=== PATIENT | male | born 1935 | race Caucasian/White ===

== ENCOUNTER 2017-05-31 05:54 | Day surgery (SDC) | payer OTHER ==
[2017-05-31] MEDS ORDERED: LIDOCAINE 1% (MPF) 30 ML INJ (06:49)
[2017-05-31] MEDS ORDERED: GELATIN SIZE 100 SPONGE (06:49)
[2017-05-31] MEDS ORDERED: HEPARIN 1000 UNITS/ML 10 ML INJ ×2 (06:50→08:12)
[2017-05-31] MEDS ORDERED: THROMBIN 5000 UNIT VIAL (06:50)
[2017-05-31 07:14] LABS: POTASSIUM 4.8 mmol/L (3.5-5.1)
[2017-05-31] MEDS ORDERED: PROPOFOL 20 ML (07:27)
[2017-05-31] MEDS ORDERED: MIDAZOLAM 1 MG/ML 2 ML INJ ×2 (07:28→07:53)
[2017-05-31] MEDS ORDERED: FENTAnyl 50 MCG/ML VIAL (07:28)
[2017-05-31] MEDS ORDERED: ROPIVACAINE 0.5 % 30 ML VIAL (07:28)
[2017-05-31] MEDS ORDERED: ONDANSETRON 4 MG INJ (07:48)
[2017-05-31] MEDS ORDERED: CEFAZOLIN 1 GM INJ (07:48)
[2017-05-31] MEDS ORDERED: METOCLOPRAMIDE 10 MG INJ (07:49)
[2017-05-31] MEDS ORDERED: DEXAMETHASONE 4 MG/ML 1 ML INJ (07:49)
[2017-05-31] MEDS ORDERED: PHENYLephrine (100 MCG/ML) 5ML SYG (08:01)
[2017-05-31] MEDS: LIDOCAINE 1% (MPF) 30 ML INJ INJ (08:06)
[2017-05-31] MEDS: HEPARIN 10,000 UNITS/ML 1 ML INJ SC (08:07)
[2017-05-31] MEDS: SODIUM CHLORIDE 0.9% 1L BAG IV (08:07)
[2017-05-31] MEDS: GELATIN SIZE 100 SPONGE TOP (08:08)
[2017-05-31] MEDS: THROMBIN 5000 UNIT VIAL TOP (08:08)
[2017-05-31] MEDS ORDERED: LABETALOL HCL 20MG INJ IV (08:30)
[2017-05-31] MEDS ORDERED: FENTAnyl 50 MCG/ML VIAL IV ×2 (08:30)
[2017-05-31] MEDS ORDERED: MEPERIDINE 25 MG INJ IV (08:30)
[2017-05-31] MEDS ORDERED: HYDROmorphONE (0.2 MG/ML) 10ML SYG IV ×3 (08:30)
[2017-05-31] MEDS ORDERED: METOCLOPRAMIDE 10 MG INJ IV (08:30)
[2017-05-31] MEDS ORDERED: hydrALAzine 20 MG INJ IV (08:30)
[2017-05-31] MEDS ORDERED: DIPHENHYDRAMINE 50 MG INJ IV (08:30)
[2017-05-31] MEDS ORDERED: EPHEDrine SULFATE 50 MG/5 ML SYG IV (08:30)
[2017-05-31] MEDS: ONDANSETRON 4 MG INJ IV (09:52)
[2017-05-31] MEDS: FENTAnyl 50 MCG/ML VIAL IV (09:52)
== END 2017-05-31 11:50 | disposition home or self-care (01) ==
LOC: SDS 05:54
DX: I12.9 Hypertensive chronic kidney disease with stage 1 through stage 4 chronic kidney disease, or unspecified chronic kidney disease (principal); N18.3 Chronic kidney disease, stage 3 (moderate); E11.9 Type 2 diabetes mellitus without complications
CPT/HCPCS: 36821; 82962; 84132

== ENCOUNTER 2018-05-29 15:20 | Inpatient (IN) | payer OTHER ==
[2018-05-29 16:10] LABS: ADD MAN DIFF? NO
[2018-05-29 16:14] LABS: WHITE BLOOD COUNT 4.1 10^3/ul (4.8-10.8)
[2018-05-29 16:14] LABS: ABNORMAL IP MESSAGE 1; BASOPHILS % 0.7 % (0.0-2.0); EOSINOPHILS # 0.2 10^3/ul (0.0-0.5); EOSINOPHILS % 4.1 % (0.0-7.0); HEMATOCRIT 25.9 % (42.0-52.0); HEMOGLOBIN 8.3 g/dl (14.0-18.0); LYMPHOCYTES # 0.4 10^3/ul (0.8-2.9); LYMPHOCYTES % 9.2 % (15.0-51.0); MEAN CORPUSCULAR HEMOGLOBIN 31.7 pg (29.0-33.0); MEAN CORPUSCULAR VOLUME 98.9 fl (82.0-101.0); MEAN PLATELET VOLUME 11.4 fl (7.4-10.4); MONOCYTE # 0.5 10^3/ul (0.3-0.9); MONOCYTES % 11.4 % (0.0-11.0); NEUTROPHILS % 74.1 % (39.0-77.0); PLATELET COUNT 93 10^3/UL (140-415); POSITIVE DIFF @See below; RED BLOOD COUNT 2.62 10^6/ul (4.70-6.10); RED CELL DISTRIBUTION WIDTH 18.8 % (11.5-14.5)
[2018-05-29 16:34] LABS: INR 1.45; PARTIAL THROMBOPLASTIN TIME 37.4 Sec (23.0-35.0); PROTIME 17.7 Sec (11.9-14.9); PT RATIO 1.4
[2018-05-29 16:35] LABS: ALANINE AMINOTRANSFERASE 10 IU/L (13-69); ALBUMIN 3.9 g/dl (3.3-4.9); ALKALINE PHOSPHATASE 190 IU/L (42-121); ANION GAP 21 (5-13); ASPARTATE AMINO TRANSFERASE 23 IU/L (15-46); BILIRUBIN,INDIRECT 0.3 mg/dl (0-1.1); BILIRUBIN,TOTAL 0.3 mg/dl (0.2-1.3); BLOOD UREA NITROGEN 36 mg/dl (7-20); CALCIUM 10.5 mg/dl (8.4-10.2); CARBON DIOXIDE 25 mmol/L (21-31); CHLORIDE 92 mmol/L (97-110); CREATININE 6.02 mg/dl (0.61-1.24); GLUCOSE 98 mg/dl (70-220); LACTATE DEHYDROGENASE 350 IU/L (313-618); LIPASE 212 U/L (23-300); POTASSIUM 4.1 mmol/L (3.5-5.1); SODIUM 138 mmol/L (135-144)
[2018-05-29 16:44] LABS: ALBUMIN/GLOBULIN RATIO 0.45; TOTAL PROTEIN 12.5 g/dl (6.1-8.1)
[2018-05-29] MEDS ORDERED: INSULIN GLARGINE [LANTus] (100 UNITS/ML) SYG SC (20:00)
[2018-05-29] MEDS ORDERED: NACL 0.9% 3 ML SYG IV (20:00)
[2018-05-29] MEDS ORDERED: GLUCOSE GEL 15 GRAM TUBE BUCCAL (20:30)
[2018-05-29] MEDS ORDERED: GLUCAGON 1 MG INJ IM (20:30)
[2018-05-29] MEDS ORDERED: GLUCOSE GEL 15 GRAM TUBE PO ×2 (20:30)
[2018-05-29] MEDS ORDERED: DEXTROSE 50% 50 ML SYRINGE IV ×2 (20:30)
[2018-05-29 20:49] LABS: IMMUNOGLOBULIN A 45 mg/dl (70-400)
[2018-05-29 20:50] LABS: IMMUNOGLOBULIN M < 25 mg/dl (40-230)
[2018-05-29] MEDS ORDERED: INSULIN ASPART [NOVOLOG] 3 ML PEN SC (21:00)
[2018-05-29] MEDS: RANITIDINE 150 MG TAB PO (21:00)
[2018-05-29] MEDS ORDERED: LISINOPRIL 20 MG TAB PO (21:00)
[2018-05-29 21:26] LABS: IMMUNOGLOBULIN G 7083 mg/dl (700-1600)
[2018-05-29] MEDS: HYDROmorphONE 0.5 MG/0.5 ML SYG IV (21:36)
[2018-05-30] MEDS ORDERED: ACCU-CHEK XX (02:00)
[2018-05-30 05:28] LABS: ADD MAN DIFF? NO
[2018-05-30 05:38] LABS: ABNORMAL IP MESSAGE 1; BASOPHILS % 0.8 % (0.0-2.0); EOSINOPHILS # 0.1 10^3/ul (0.0-0.5); EOSINOPHILS % 2.9 % (0.0-7.0); HEMATOCRIT 26.6 % (42.0-52.0); HEMOGLOBIN 8.6 g/dl (14.0-18.0); LYMPHOCYTES # 0.5 10^3/ul (0.8-2.9); LYMPHOCYTES % 10.1 % (15.0-51.0); MEAN CORPUSCULAR HEMOGLOBIN 32.2 pg (29.0-33.0); MEAN CORPUSCULAR HGB CONC 32.3 g/dl (32.0-37.0); MEAN CORPUSCULAR VOLUME 99.6 fl (82.0-101.0); MEAN PLATELET VOLUME 12.8 fl (7.4-10.4); MONOCYTE # 0.5 10^3/ul (0.3-0.9); MONOCYTES % 10.5 % (0.0-11.0); NEUTROPHIL # 3.6 10^3/ul (1.6-7.5); NEUTROPHILS % 75.3 % (39.0-77.0); PLATELET COUNT 92 10^3/UL (140-415); POSITIVE DIFF @See below; RED BLOOD COUNT 2.67 10^6/ul (4.70-6.10); RED CELL DISTRIBUTION WIDTH 19.2 % (11.5-14.5)
[2018-05-30 05:38] LABS: WHITE BLOOD COUNT 4.8 10^3/ul (4.8-10.8)
[2018-05-30 05:53] LABS: HEMOGLOBIN A1C 5.6 % (0-5.9)
[2018-05-30 06:12] LABS: ALANINE AMINOTRANSFERASE 11 IU/L (13-69); ALBUMIN 3.7 g/dl (3.3-4.9); ALKALINE PHOSPHATASE 174 IU/L (42-121); ANION GAP 22 (5-13); ASPARTATE AMINO TRANSFERASE 25 IU/L (15-46); BILIRUBIN,INDIRECT 0.3 mg/dl (0-1.1); BILIRUBIN,TOTAL 0.3 mg/dl (0.2-1.3); BLOOD UREA NITROGEN 46 mg/dl (7-20); CALCIUM 10.8 mg/dl (8.4-10.2); CARBON DIOXIDE 25 mmol/L (21-31); CHLORIDE 93 mmol/L (97-110); CREATININE 6.85 mg/dl (0.61-1.24); GLUCOSE 98 mg/dl (70-220); POTASSIUM 4.4 mmol/L (3.5-5.1); SODIUM 140 mmol/L (135-144)
[2018-05-30 06:50] LABS: ALBUMIN/GLOBULIN RATIO 0.44; TOTAL PROTEIN 12.1 g/dl (6.1-8.1)
[2018-05-30] MEDS ORDERED: ATROPINE 1 MG/10 ML SYRINGE (07:00)
[2018-05-30] MEDS: CLOPIDOGREL 75 MG TAB PO (09:00)
[2018-05-30] MEDS ORDERED: NIFEdipine (XL) 30 MG TAB PO (09:00)
[2018-05-30] MEDS: APIXABAN 5 MG TABLET PO (09:00)
[2018-05-30] MEDS: HYDROCODONE/APAP (5/325) TAB PO ×2 (09:57→22:20)
[2018-05-30] MEDS ORDERED: NALOXONE (0.4 MG/ML) INJ (14:08)
[2018-05-30] MEDS: NALOXONE (0.4 MG/ML) INJ IV (14:13)
[2018-05-30] MEDS ORDERED: BISACODYL (EC) 5 MG TAB PO (18:30)
[2018-05-30] MEDS: ATORVASTATIN 40 MG TAB PO (20:34)
[2018-05-30] MEDS: RANITIDINE 150 MG TAB PO (20:35)
[2018-05-31] MEDS: ONDANSETRON 4 MG INJ IV (00:10)
[2018-05-31 09:36] LABS: PROTEIN, TOTAL 11.6 g/dL (6.1-8.1)
[2018-05-31] MEDS: CLOPIDOGREL 75 MG TAB PO (09:46)
[2018-05-31] MEDS: APIXABAN 5 MG TABLET PO (09:48)
[2018-05-31] MEDS: NA PHOSPHATE/BIPHOS 133 ML ENEMA PR (12:00)
[2018-05-31 13:13] LABS: HAAIG REFLEX REFLEX FILED
[2018-05-31 14:15] LABS: HEPATITIS B SURFACE ANTIGEN NEGATIVE (NEGATIVE)
[2018-05-31 14:28] LABS: IMMUNOGLOBULIN E 5 kU/L (<OR=114)
[2018-05-31 14:33] LABS: HEPATITIS B CORE ANTIBODY NEGATIVE (NEGATIVE); HEPATITIS C VIRAL ANTIBODY NEGATIVE (NEGATIVE)
[2018-05-31] MEDS: PAMIDRONATE 30 MG in SOD CHLORIDE 0.9% 500 ML IV (16:33)
[2018-05-31] MEDS: BALSAM PERU/CASTOR OIL 60 GM TUBE TOP ×2 (16:33→20:46)
[2018-05-31] MEDS: HYDROCODONE/APAP (5/325) TAB PO ×2 (16:41→22:01)
[2018-05-31 16:46] LABS: ABNORMAL PROTEIN BAND 1 6.3 g/dL (NONE DETECTED); ALBUMIN 2.9 g/dL (3.8-4.8); ALPHA-1-GLOBULINS 0.5 g/dL (0.2-0.3); ALPHA-2-GLOBULINS 0.6 g/dL (0.5-0.9); BETA GLOBULINS 0.4 g/dL (0.4-0.6); GAMMA GLOBULINS 0.2 g/dL (0.8-1.7)
[2018-05-31] MEDS: ATORVASTATIN 40 MG TAB PO (20:45)
[2018-05-31] MEDS: RANITIDINE 150 MG TAB PO (20:45)
[2018-06-01] MEDS ORDERED: NORepinephrine 8MG/250 ML (PMX 250 ML (02:13)
[2018-06-01] MEDS: NORepinephrine 8MG/250 ML (PMX 250 ML IV ×2 (02:16→09:30)
[2018-06-01 03:01] LABS: AADO2 Arterial 207.3 mmHg (7.0-24.0); Allen Test ACCEPTAB; Arterial Base Excess -2.7 mmol/L (-3.0-3); Arterial Blood Gas Oxygen Sat 96.8 mmHG (95.0-100.0); Arterial COHb 0.8 % (0.0-3.0); Arterial Fraction of Oxyhgb 95.8 % (93.0-99.0); Arterial HCO3 22.5 mmol/L (22.0-26.0); Arterial MetHb 0.2 % (0.0-1.5); MODE VENT - AC; Site Right Radial
[2018-06-01] MEDS: NALOXONE (0.4 MG/ML) INJ IV ×2 (03:01→04:40)
[2018-06-01 03:15] LABS: ADD MAN DIFF? NO
[2018-06-01] MEDS: SOD CHLORIDE 0.9% 500 ML IV (03:17)
[2018-06-01 03:22] LABS: WHITE BLOOD COUNT 4.5 10^3/ul (4.8-10.8)
[2018-06-01 03:22] LABS: ABNORMAL IP MESSAGE 1; BASOPHILS % 0.4 % (0.0-2.0); EOSINOPHILS # 0.1 10^3/ul (0.0-0.5); EOSINOPHILS % 1.6 % (0.0-7.0); HEMATOCRIT 25.1 % (42.0-52.0); HEMOGLOBIN 7.8 g/dl (14.0-18.0); LYMPHOCYTES # 0.3 10^3/ul (0.8-2.9); LYMPHOCYTES % 7.2 % (15.0-51.0); MEAN CORPUSCULAR HEMOGLOBIN 31.6 pg (29.0-33.0); MEAN CORPUSCULAR HGB CONC 31.1 g/dl (32.0-37.0); MEAN CORPUSCULAR VOLUME 101.6 fl (82.0-101.0); MEAN PLATELET VOLUME 12.4 fl (7.4-10.4); MONOCYTE # 0.3 10^3/ul (0.3-0.9); MONOCYTES % 5.6 % (0.0-11.0); NEUTROPHIL # 3.7 10^3/ul (1.6-7.5); NEUTROPHILS % 83.6 % (39.0-77.0); PLATELET COUNT 77 10^3/UL (140-415); POSITIVE DIFF @See below; RED BLOOD COUNT 2.47 10^6/ul (4.70-6.10); RED CELL DISTRIBUTION WIDTH 19.3 % (11.5-14.5)
[2018-06-01 03:44] LABS: ALANINE AMINOTRANSFERASE 27 IU/L (13-69); ALBUMIN 3.3 g/dl (3.3-4.9); ALBUMIN/GLOBULIN RATIO 0.44; ALKALINE PHOSPHATASE 171 IU/L (42-121); ANION GAP 17 (5-13); ASPARTATE AMINO TRANSFERASE 48 IU/L (15-46); BILIRUBIN,INDIRECT 0.3 mg/dl (0-1.1); BILIRUBIN,TOTAL 0.3 mg/dl (0.2-1.3); BLOOD UREA NITROGEN 34 mg/dl (7-20); CALCIUM 11.1 mg/dl (8.4-10.2); CARBON DIOXIDE 23 mmol/L (21-31); CHLORIDE 103 mmol/L (97-110); CREATININE 5.67 mg/dl (0.61-1.24); GLUCOSE 122 mg/dl (70-220); POTASSIUM 4.7 mmol/L (3.5-5.1); SODIUM 143 mmol/L (135-144); TOTAL PROTEIN 10.7 g/dl (6.1-8.1)
[2018-06-01 03:48] LABS: CREATINE KINASE 103 IU/L (23-200)
[2018-06-01 03:55] LABS: CK INDEX 1.7; CK-MB 1.76 ng/ml (0.0-2.4)
[2018-06-01 03:58] LABS: LACTIC ACID 3.4 mmol/L (0.5-2.0)
[2018-06-01] MEDS ORDERED: NA BICARBONATE 8.4% 50 ML SYG (04:00)
[2018-06-01] MEDS ORDERED: SUCCINYLCHOLINE CHLORIDE 100 MG/5 ML SYG IV (04:00)
[2018-06-01] MEDS ORDERED: DEXTROSE 50% 50 ML SYRINGE (04:00)
[2018-06-01] MEDS ORDERED: ETOMIDATE 20 MG INJ (04:00)
[2018-06-01] MEDS ORDERED: CA CHLORIDE 10% 10 ML SYRINGE (04:00)
[2018-06-01] MEDS ORDERED: EPINEPHrine 0.1 MG/ML SYG (04:00)
[2018-06-01] MEDS: PROPOFOL 40 ML (04:04)
[2018-06-01] MEDS: MIDAZOLAM 1 MG/ML 2 ML INJ (04:05)
[2018-06-01] MEDS: FENTAnyl 50 MCG/ML VIAL (04:05)
[2018-06-01] MEDS: LIDOCAINE 1% (MDV) 20 ML INJ (04:06)
[2018-06-01] MEDS: LIDOCAINE 2% (SDV) 5 ML INJ (04:06)
[2018-06-01] MEDS: GLYCOPYRROLATE 0.4 MG INJ (04:06)
[2018-06-01] MEDS: EPHEDrine 25 MG/5 ML SYG (04:06)
[2018-06-01] MEDS: SOD CHLORIDE 0.9% 1,000 ML IV (04:40)
[2018-06-01] MEDS: INSULIN ASPART [NOVOLOG] 3 ML PEN SC (04:58)
[2018-06-01 05:18] LABS: ADD MAN DIFF? NO
[2018-06-01 05:20] LABS: WHITE BLOOD COUNT 5.6 10^3/ul (4.8-10.8)
[2018-06-01 05:20] LABS: ABNORMAL IP MESSAGE 1; BASOPHILS % 0.4 % (0.0-2.0); EOSINOPHILS % 0.5 % (0.0-7.0); HEMATOCRIT 25.9 % (42.0-52.0); HEMOGLOBIN 8.1 g/dl (14.0-18.0); LYMPHOCYTES # 0.5 10^3/ul (0.8-2.9); LYMPHOCYTES % 9.6 % (15.0-51.0); MEAN CORPUSCULAR HEMOGLOBIN 31.5 pg (29.0-33.0); MEAN CORPUSCULAR HGB CONC 31.3 g/dl (32.0-37.0); MEAN CORPUSCULAR VOLUME 100.8 fl (82.0-101.0); MEAN PLATELET VOLUME 12.5 fl (7.4-10.4); MONOCYTE # 0.5 10^3/ul (0.3-0.9); MONOCYTES % 8.9 % (0.0-11.0); NEUTROPHIL # 4.5 10^3/ul (1.6-7.5); NEUTROPHILS % 79.9 % (39.0-77.0); NUCLEATED RED BLOOD CELLS% 0.4 /100WBC (0.0-0.0); PLATELET COUNT 87 10^3/UL (140-415); POSITIVE DIFF @See below; RED BLOOD COUNT 2.57 10^6/ul (4.70-6.10); RED CELL DISTRIBUTION WIDTH 19.4 % (11.5-14.5)
[2018-06-01] MEDS ORDERED: PROPOFOL 100 ML (06:22)
[2018-06-01 06:29] LABS: ANION GAP 19 (5-13); BLOOD UREA NITROGEN 36 mg/dl (7-20); CARBON DIOXIDE 23 mmol/L (21-31); CHLORIDE 99 mmol/L (97-110); CREATININE 5.73 mg/dl (0.61-1.24); GLUCOSE 142 mg/dl (70-220); PHOSPHORUS 7.6 mg/dl (2.5-4.9); SODIUM 141 mmol/L (135-144)
[2018-06-01] MEDS ORDERED: ACETAMINOPHEN 650 MG SUPP PR (07:00)
[2018-06-01] MEDS: ACCU-CHEK XX ×6 (07:00→20:00)
[2018-06-01] MEDS ORDERED: MEPERIDINE 25 MG INJ IV ×3 (07:00→07:30)
[2018-06-01] MEDS ORDERED: ACETAMINOPHEN 650MG/20.3ML CUP PO (07:00)
[2018-06-01] MEDS ORDERED: DEXTROSE 50% 50 ML SYRINGE IV ×4 (07:00→09:30)
[2018-06-01] MEDS ORDERED: BUSPIRONE 5 MG TAB GTB (07:30)
[2018-06-01] MEDS: VECURONIUM 10 MG VIAL IV (07:30)
[2018-06-01] MEDS: PROPOFOL 100 ML IV ×3 (07:53→18:02)
[2018-06-01 08:03] LABS: AADO2 Arterial 202.7 mmHg (7.0-24.0); Allen Test ACCEPTAB; Arterial Base Excess -0.3 mmol/L (-3.0-3); Arterial Blood Gas Oxygen Sat 98.2 mmHG (95.0-100.0); Arterial COHb 0.6 % (0.0-3.0); Arterial Fraction of Oxyhgb 97.5 % (93.0-99.0); Arterial HCO3 23.7 mmol/L (22.0-26.0); Arterial MetHb 0.1 % (0.0-1.5); Arterial pCO2 34.9 mmhg (35-45); MODE VENT - AC; Site Right Radial; Temperature 36.2 C
[2018-06-01 08:03] LABS: LACTIC ACID 1.4 mmol/L (0.5-2.0)
[2018-06-01 08:04] LABS: AMYLASE 57 U/L (11-123); LIPASE 133 U/L (23-300); MAGNESIUM 2.1 mg/dl (1.7-2.5)
[2018-06-01 08:04] LABS: PHOSPHORUS 7.8 mg/dl (2.5-4.9)
[2018-06-01 08:07] LABS: CREATINE KINASE 79 IU/L (23-200)
[2018-06-01 08:16] LABS: CK INDEX 3.5; INR 1.73; PROTIME 20.3 Sec (11.9-14.9); PT RATIO 1.6
[2018-06-01 08:17] LABS: PARTIAL THROMBOPLASTIN TIME 36.3 Sec (23.0-35.0)
[2018-06-01 08:19] LABS: CK-MB 2.77 ng/ml (0.0-2.4)
[2018-06-01 08:21] LABS: TROPONIN-I 0.222 ng/ml (0.000-0.120)
[2018-06-01 08:35] LABS: D-DIMER 5884.17 ng/ml (<460)
[2018-06-01] MEDS: BALSAM PERU/CASTOR OIL 60 GM TUBE TOP ×2 (09:00→23:20)
[2018-06-01] MEDS: CLOPIDOGREL 75 MG TAB PO (09:00)
[2018-06-01] MEDS: APIXABAN 5 MG TABLET PO (09:00)
[2018-06-01] MEDS ORDERED: GLUCAGON 1 MG INJ IM (09:30)
[2018-06-01] MEDS ORDERED: GLUCOSE GEL 15 GRAM TUBE BUCCAL (09:30)
[2018-06-01] MEDS ORDERED: GLUCOSE GEL 15 GRAM TUBE PO ×2 (09:30)
[2018-06-01] MEDS ORDERED: (Nursing Note) XX (09:30)
[2018-06-01] MEDS: VECURONIUM 100 MG in DEXTROSE 5% 100 ML IV (09:55)
[2018-06-01] MEDS ORDERED: VANCOMYCIN IV PER PHARMACY XX (10:00)
[2018-06-01] MEDS: AZTREONAM 1 GM/NS (PMX) 50 ML IVPB (10:38)
[2018-06-01] MEDS ORDERED: OCULAR LUBRICANT 3.5 GM OPH OINT BOTH EYES ×2 (12:00)
[2018-06-01] MEDS: ARTIFICIAL TEARS 15 ML OPH BOTH EYES ×3 (12:04→23:21)
[2018-06-01] MEDS: HYPROMELLOSE OPHTHALMIC LUBRICANT GEL (10 GM) BOTH EYES ×3 (12:06→23:22)
[2018-06-01 12:20] LABS: ADD MAN DIFF? NO
[2018-06-01 12:23] LABS: ABNORMAL IP MESSAGE 1; BASOPHILS % 0.2 % (0.0-2.0); EOSINOPHILS % 0.2 % (0.0-7.0); HEMATOCRIT 25.6 % (42.0-52.0); HEMOGLOBIN 8.2 g/dl (14.0-18.0); LYMPHOCYTES # 0.4 10^3/ul (0.8-2.9); LYMPHOCYTES % 7.9 % (15.0-51.0); MEAN CORPUSCULAR HEMOGLOBIN 32.3 pg (29.0-33.0); MEAN CORPUSCULAR VOLUME 100.8 fl (82.0-101.0); MEAN PLATELET VOLUME 12.1 fl (7.4-10.4); MONOCYTE # 0.4 10^3/ul (0.3-0.9); MONOCYTES % 7.5 % (0.0-11.0); NEUTROPHIL # 4.1 10^3/ul (1.6-7.5); NEUTROPHILS % 83.4 % (39.0-77.0); PLATELET COUNT 70 10^3/UL (140-415); POSITIVE DIFF @See below; RED BLOOD COUNT 2.54 10^6/ul (4.70-6.10); RED CELL DISTRIBUTION WIDTH 19.2 % (11.5-14.5)
[2018-06-01 12:44] LABS: LACTIC ACID 1.2 mmol/L (0.5-2.0)
[2018-06-01 12:44] LABS: CREATINE KINASE 67 IU/L (23-200)
[2018-06-01 12:53] LABS: CK INDEX 4.9
[2018-06-01 13:04] LABS: CK-MB 3.26 ng/ml (0.0-2.4); TROPONIN-I 0.291 ng/ml (0.000-0.120)
[2018-06-01 13:10] LABS: AADO2 Arterial 182.7 mmHg (7.0-24.0); Allen Test ACCEPTAB; Arterial Base Excess -0.5 mmol/L (-3.0-3); Arterial Blood Gas Oxygen Sat 96.2 mmHG (95.0-100.0); Arterial COHb 0.7 % (0.0-3.0); Arterial Fraction of Oxyhgb 95.2 % (93.0-99.0); Arterial HCO3 24.1 mmol/L (22.0-26.0); Arterial MetHb 0.3 % (0.0-1.5); Arterial pCO2 32.6 mmhg (35-45); MODE VENT - AC; Site Right Radial; Temperature 32.6 C
[2018-06-01 13:15] LABS: AMYLASE 67 U/L (11-123)
[2018-06-01 13:15] LABS: LIPASE 122 U/L (23-300)
[2018-06-01 13:17] LABS: INR 1.79; PROTIME 20.9 Sec (11.9-14.9); PT RATIO 1.6
[2018-06-01 13:18] LABS: PARTIAL THROMBOPLASTIN TIME 36.2 Sec (23.0-35.0)
[2018-06-01 13:19] LABS: ANION GAP 22 (5-13); BLOOD UREA NITROGEN 39 mg/dl (7-20); CARBON DIOXIDE 21 mmol/L (21-31); CHLORIDE 99 mmol/L (97-110); CREATININE 6.41 mg/dl (0.61-1.24); GLUCOSE 147 mg/dl (70-220); MAGNESIUM 2.1 mg/dl (1.7-2.5); PHOSPHORUS 8.2 mg/dl (2.5-4.9); POTASSIUM 4.4 mmol/L (3.5-5.1); SODIUM 142 mmol/L (135-144)
[2018-06-01] MEDS: VANCOMYCIN HCL 1.75 GM in SOD CHLORIDE 0.9% 500 ML IVPB (14:04)
[2018-06-01 18:22] LABS: ADD MAN DIFF? NO
[2018-06-01 18:23] LABS: ABNORMAL IP MESSAGE 1; BASOPHILS % 0.2 % (0.0-2.0); EOSINOPHILS % 0.2 % (0.0-7.0); HEMATOCRIT 25.5 % (42.0-52.0); HEMOGLOBIN 8.1 g/dl (14.0-18.0); LYMPHOCYTES # 0.4 10^3/ul (0.8-2.9); LYMPHOCYTES % 8.4 % (15.0-51.0); MEAN CORPUSCULAR HGB CONC 31.8 g/dl (32.0-37.0); MEAN CORPUSCULAR VOLUME 100.8 fl (82.0-101.0); MEAN PLATELET VOLUME 12.5 fl (7.4-10.4); MONOCYTE # 0.4 10^3/ul (0.3-0.9); MONOCYTES % 7.4 % (0.0-11.0); NEUTROPHIL # 4.3 10^3/ul (1.6-7.5); NEUTROPHILS % 83.2 % (39.0-77.0); PLATELET COUNT 67 10^3/UL (140-415); POSITIVE DIFF @See below; RED BLOOD COUNT 2.53 10^6/ul (4.70-6.10); RED CELL DISTRIBUTION WIDTH 19.4 % (11.5-14.5)
[2018-06-01 18:23] LABS: WHITE BLOOD COUNT 5.1 10^3/ul (4.8-10.8)
[2018-06-01 18:43] LABS: LACTIC ACID 1.1 mmol/L (0.5-2.0)
[2018-06-01 18:44] LABS: CREATINE KINASE 39 IU/L (23-200)
[2018-06-01 18:45] LABS: Allen Test ACCEPTAB; Arterial Base Excess -2.9 mmol/L (-3.0-3); Arterial Blood Gas Oxygen Sat 97.2 mmHG (95.0-100.0); Arterial COHb 0.3 % (0.0-3.0); Arterial Fraction of Oxyhgb 96.6 % (93.0-99.0); Arterial HCO3 21.1 mmol/L (22.0-26.0); Arterial MetHb 0.3 % (0.0-1.5); Arterial pCO2 26.7 mmhg (35-45); MODE VENT - AC; Site Right Radial; Temperature 32.1 C
[2018-06-01 18:56] LABS: CK INDEX 7.9
[2018-06-01 18:59] LABS: CK-MB 3.08 ng/ml (0.0-2.4); TROPONIN-I 0.359 ng/ml (0.000-0.120)
[2018-06-01 19:19] LABS: ANION GAP 19 (5-13); BLOOD UREA NITROGEN 44 mg/dl (7-20); CARBON DIOXIDE 22 mmol/L (21-31); CHLORIDE 99 mmol/L (97-110); CREATININE 6.37 mg/dl (0.61-1.24); GLUCOSE 146 mg/dl (70-220); MAGNESIUM 2.1 mg/dl (1.7-2.5); POTASSIUM 4.3 mmol/L (3.5-5.1); SODIUM 140 mmol/L (135-144)
[2018-06-01] MEDS: ATORVASTATIN 40 MG TAB PO (21:45)
[2018-06-01] MEDS: RANITIDINE 150 MG TAB PO (21:45)
[2018-06-01] MEDS: AZTREONAM 0.5 GM in SOD CHLORIDE 0.9% 50 ML IV (21:47)
[2018-06-02 00:29] LABS: ADD MAN DIFF? NO
[2018-06-02 00:32] LABS: AADO2 Arterial 172.4 mmHg (7.0-24.0); Arterial Base Excess 0.6 mmol/L (-3.0-3); Arterial Blood Gas Oxygen Sat 98.4 mmHG (95.0-100.0); Arterial COHb 0.2 % (0.0-3.0); Arterial Fraction of Oxyhgb 98.2 % (93.0-99.0); Arterial HCO3 24.6 mmol/L (22.0-26.0); Arterial MetHb 0 % (0.0-1.5); Arterial pCO2 31.1 mmhg (35-45); MODE VENT - AC; Site Right Brachial; Temperature 32.9 C
[2018-06-02 00:33] LABS: ABNORMAL IP MESSAGE 1; BASOPHILS % 0.2 % (0.0-2.0); EOSINOPHILS % 0.2 % (0.0-7.0); HEMATOCRIT 25.3 % (42.0-52.0); HEMOGLOBIN 8.1 g/dl (14.0-18.0); LYMPHOCYTES # 0.3 10^3/ul (0.8-2.9); LYMPHOCYTES % 6.5 % (15.0-51.0); MEAN CORPUSCULAR HEMOGLOBIN 32.4 pg (29.0-33.0); MEAN CORPUSCULAR VOLUME 101.2 fl (82.0-101.0); MEAN PLATELET VOLUME 12.6 fl (7.4-10.4); MONOCYTE # 0.4 10^3/ul (0.3-0.9); MONOCYTES % 8.9 % (0.0-11.0); NEUTROPHIL # 4.2 10^3/ul (1.6-7.5); NEUTROPHILS % 83.8 % (39.0-77.0); PLATELET COUNT 72 10^3/UL (140-415); POSITIVE DIFF @See below; RED CELL DISTRIBUTION WIDTH 19.3 % (11.5-14.5)
[2018-06-02 00:54] LABS: AMYLASE 75 U/L (11-123); LACTIC ACID 1.1 mmol/L (0.5-2.0)
[2018-06-02 00:54] LABS: CREATINE KINASE 28 IU/L (23-200); LIPASE 151 U/L (23-300)
[2018-06-02 00:56] LABS: ANION GAP 20 (5-13); BLOOD UREA NITROGEN 49 mg/dl (7-20); CALCIUM 11.1 mg/dl (8.4-10.2); CARBON DIOXIDE 22 mmol/L (21-31); CHLORIDE 98 mmol/L (97-110); CREATININE 6.74 mg/dl (0.61-1.24); GLUCOSE 133 mg/dl (70-220); MAGNESIUM 2.2 mg/dl (1.7-2.5); PHOSPHORUS 10.2 mg/dl (2.5-4.9); POTASSIUM 4.4 mmol/L (3.5-5.1); SODIUM 140 mmol/L (135-144)
[2018-06-02 01:03] LABS: INR 1.66; PROTIME 19.7 Sec (11.9-14.9); PT RATIO 1.5
[2018-06-02 01:04] LABS: PARTIAL THROMBOPLASTIN TIME 34.6 Sec (23.0-35.0)
[2018-06-02 01:06] LABS: CK INDEX 10.2
[2018-06-02 01:07] LABS: CK-MB 2.86 ng/ml (0.0-2.4); TROPONIN-I 0.334 ng/ml (0.000-0.120)
[2018-06-02] MEDS ORDERED: ACCU-CHEK XX (02:00)
[2018-06-02] MEDS: PROPOFOL 100 ML IV ×5 (02:04→23:09)
[2018-06-02] MEDS: ACCU-CHEK XX ×6 (04:00→20:00)
[2018-06-02] MEDS: INSULIN HUMAN REGULAR 100 UNIT in SOD CHLORIDE 0.9% 99 ML IV (04:10)
[2018-06-02] MEDS: ARTIFICIAL TEARS 15 ML OPH BOTH EYES ×4 (05:35→23:39)
[2018-06-02] MEDS: HYPROMELLOSE OPHTHALMIC LUBRICANT GEL (10 GM) BOTH EYES ×4 (05:36→23:39)
[2018-06-02 05:47] LABS: ADD MAN DIFF? NO
[2018-06-02 05:57] LABS: ABNORMAL IP MESSAGE 1; BASOPHILS % 0.2 % (0.0-2.0); EOSINOPHILS % 0.2 % (0.0-7.0); HEMATOCRIT 25.9 % (42.0-52.0); HEMOGLOBIN 8.3 g/dl (14.0-18.0); LYMPHOCYTES # 0.4 10^3/ul (0.8-2.9); LYMPHOCYTES % 5.8 % (15.0-51.0); MEAN CORPUSCULAR HEMOGLOBIN 32.2 pg (29.0-33.0); MEAN CORPUSCULAR VOLUME 100.4 fl (82.0-101.0); MEAN PLATELET VOLUME 12.6 fl (7.4-10.4); MONOCYTE # 0.5 10^3/ul (0.3-0.9); MONOCYTES % 7.6 % (0.0-11.0); NEUTROPHIL # 5.3 10^3/ul (1.6-7.5); NEUTROPHILS % 85.7 % (39.0-77.0); NUCLEATED RED BLOOD CELLS% 0.3 /100WBC (0.0-0.0); PLATELET COUNT 83 10^3/UL (140-415); POSITIVE DIFF @See below; RED BLOOD COUNT 2.58 10^6/ul (4.70-6.10); RED CELL DISTRIBUTION WIDTH 19.2 % (11.5-14.5)
[2018-06-02 05:57] LABS: WHITE BLOOD COUNT 6.2 10^3/ul (4.8-10.8)
[2018-06-02 06:14] LABS: CREATINE KINASE 27 IU/L (23-200)
[2018-06-02 06:16] LABS: ANION GAP 18 (5-13); BLOOD UREA NITROGEN 51 mg/dl (7-20); CALCIUM 11.1 mg/dl (8.4-10.2); CARBON DIOXIDE 21 mmol/L (21-31); CHLORIDE 102 mmol/L (97-110); CREATININE 7.03 mg/dl (0.61-1.24); GLUCOSE 133 mg/dl (70-220); MAGNESIUM 2.2 mg/dl (1.7-2.5); PHOSPHORUS 11.3 mg/dl (2.5-4.9); POTASSIUM 4.8 mmol/L (3.5-5.1); SODIUM 141 mmol/L (135-144)
[2018-06-02 06:25] LABS: CK INDEX 10.1
[2018-06-02 06:26] LABS: LACTIC ACID 1.3 mmol/L (0.5-2.0)
[2018-06-02 06:29] LABS: CK-MB 2.73 ng/ml (0.0-2.4); TROPONIN-I 0.278 ng/ml (0.000-0.120)
[2018-06-02] MEDS: ACETAMINOPHEN 650MG/20.3ML CUP PO ×3 (06:49→19:00)
[2018-06-02] MEDS: ACETAMINOPHEN 650 MG SUPP PR ×3 (06:49→19:25)
[2018-06-02 07:30] LABS: AADO2 Arterial 143.7 mmHg (7.0-24.0); Arterial Base Excess -2.6 mmol/L (-3.0-3); Arterial Blood Gas Oxygen Sat 99.2 mmHG (95.0-100.0); Arterial COHb 0.6 % (0.0-3.0); Arterial Fraction of Oxyhgb 98.3 % (93.0-99.0); Arterial HCO3 21.3 mmol/L (22.0-26.0); Arterial MetHb 0.3 % (0.0-1.5); Arterial pCO2 28.2 mmhg (35-45); MODE VENT - AC; Site Right Brachial; Temperature 33.4 C
[2018-06-02] MEDS: AZTREONAM 0.5 GM in SOD CHLORIDE 0.9% 50 ML IV ×2 (09:18→21:41)
[2018-06-02] MEDS: FAMOTIDINE 20 MG INJ IV (09:58)
[2018-06-02] MEDS: BALSAM PERU/CASTOR OIL 60 GM TUBE TOP ×2 (09:58→21:45)
[2018-06-02] MEDS: NORepinephrine 8MG/250 ML (PMX 250 ML IV ×2 (12:04→12:22)
[2018-06-02 12:08] LABS: ADD MAN DIFF? NO
[2018-06-02 12:26] LABS: LACTIC ACID 1.3 mmol/L (0.5-2.0); WHITE BLOOD COUNT 6.9 10^3/ul (4.8-10.8)
[2018-06-02 12:26] LABS: ABNORMAL IP MESSAGE 1; BASOPHILS % 0.3 % (0.0-2.0); EOSINOPHILS % 0.3 % (0.0-7.0); HEMATOCRIT 25.7 % (42.0-52.0); HEMOGLOBIN 8.4 g/dl (14.0-18.0); LYMPHOCYTES # 0.4 10^3/ul (0.8-2.9); LYMPHOCYTES % 5.7 % (15.0-51.0); MEAN CORPUSCULAR HEMOGLOBIN 32.6 pg (29.0-33.0); MEAN CORPUSCULAR HGB CONC 32.7 g/dl (32.0-37.0); MEAN CORPUSCULAR VOLUME 99.6 fl (82.0-101.0); MEAN PLATELET VOLUME 12.4 fl (7.4-10.4); MONOCYTE # 0.5 10^3/ul (0.3-0.9); MONOCYTES % 6.7 % (0.0-11.0); NEUTROPHIL # 5.9 10^3/ul (1.6-7.5); NEUTROPHILS % 86.3 % (39.0-77.0); PLATELET COUNT 84 10^3/UL (140-415); POSITIVE DIFF @See below; RED BLOOD COUNT 2.58 10^6/ul (4.70-6.10); RED CELL DISTRIBUTION WIDTH 19.2 % (11.5-14.5)
[2018-06-02 12:27] LABS: ANION GAP 20 (5-13); BLOOD UREA NITROGEN 55 mg/dl (7-20); CALCIUM 10.7 mg/dl (8.4-10.2); CARBON DIOXIDE 20 mmol/L (21-31); CHLORIDE 99 mmol/L (97-110); GLUCOSE 137 mg/dl (70-220); MAGNESIUM 2.2 mg/dl (1.7-2.5); PHOSPHORUS 11.1 mg/dl (2.5-4.9); POTASSIUM 4.6 mmol/L (3.5-5.1); SODIUM 139 mmol/L (135-144)
[2018-06-02 12:38] LABS: INR 1.51; PROTIME 18.3 Sec (11.9-14.9); PT RATIO 1.4
[2018-06-02 12:39] LABS: PARTIAL THROMBOPLASTIN TIME 34.1 Sec (23.0-35.0)
[2018-06-02 12:41] LABS: TROPONIN-I 0.261 ng/ml (0.000-0.120)
[2018-06-02 12:49] LABS: AMYLASE 107 U/L (11-123)
[2018-06-02 12:49] LABS: LIPASE 507 U/L (23-300)
[2018-06-02 12:52] LABS: CK-MB 2.71 ng/ml (0.0-2.4); CREATINE KINASE 30 IU/L (23-200)
[2018-06-02] MEDS: ASPIRIN 81 MG TAB PO (13:20)
[2018-06-02 18:46] LABS: ADD MAN DIFF? NO
[2018-06-02 18:47] LABS: WHITE BLOOD COUNT 6.9 10^3/ul (4.8-10.8)
[2018-06-02 18:47] LABS: ABNORMAL IP MESSAGE 1; BASOPHILS % 0.3 % (0.0-2.0); EOSINOPHILS # 0.1 10^3/ul (0.0-0.5); EOSINOPHILS % 1.2 % (0.0-7.0); HEMATOCRIT 25.2 % (42.0-52.0); HEMOGLOBIN 8.2 g/dl (14.0-18.0); LYMPHOCYTES # 0.4 10^3/ul (0.8-2.9); LYMPHOCYTES % 6.2 % (15.0-51.0); MEAN CORPUSCULAR HEMOGLOBIN 32.5 pg (29.0-33.0); MEAN CORPUSCULAR HGB CONC 32.5 g/dl (32.0-37.0); MEAN PLATELET VOLUME 13.2 fl (7.4-10.4); MONOCYTE # 0.4 10^3/ul (0.3-0.9); MONOCYTES % 6.4 % (0.0-11.0); NEUTROPHIL # 5.9 10^3/ul (1.6-7.5); NEUTROPHILS % 85.2 % (39.0-77.0); PLATELET COUNT 100 10^3/UL (140-415); POSITIVE DIFF @See below; RED BLOOD COUNT 2.52 10^6/ul (4.70-6.10); RED CELL DISTRIBUTION WIDTH 19.2 % (11.5-14.5)
[2018-06-02 19:08] LABS: LACTIC ACID 1.2 mmol/L (0.5-2.0)
[2018-06-02 19:08] LABS: ANION GAP 21 (5-13); BLOOD UREA NITROGEN 61 mg/dl (7-20); CALCIUM 10.4 mg/dl (8.4-10.2); CARBON DIOXIDE 22 mmol/L (21-31); CHLORIDE 98 mmol/L (97-110); GLUCOSE 120 mg/dl (70-220); MAGNESIUM 2.1 mg/dl (1.7-2.5); PHOSPHORUS 10.3 mg/dl (2.5-4.9); POTASSIUM 4.6 mmol/L (3.5-5.1); SODIUM 141 mmol/L (135-144)
[2018-06-02 20:18] LABS: AADO2 Arterial 162.3 mmHg (7.0-24.0); Arterial Base Excess -1.1 mmol/L (-3.0-3); Arterial Blood Gas Oxygen Sat 98.7 mmHG (95.0-100.0); Arterial COHb 0.3 % (0.0-3.0); Arterial Fraction of Oxyhgb 98.3 % (93.0-99.0); Arterial MetHb 0.1 % (0.0-1.5); Arterial pCO2 31.2 mmhg (35-45); MODE VENT - AC; Site Right Brachial
[2018-06-02 20:26] LABS: AADO2 Arterial 178.6 mmHg (7.0-24.0); Allen Test ACCEPTAB; Arterial Base Excess -1.1 mmol/L (-3.0-3); Arterial Blood Gas Oxygen Sat 97.5 mmHG (95.0-100.0); Arterial COHb 0.6 % (0.0-3.0); Arterial Fraction of Oxyhgb 96.9 % (93.0-99.0); Arterial HCO3 23.2 mmol/L (22.0-26.0); Arterial MetHb 0 % (0.0-1.5); MODE VENT - AC; Site Right Radial; Temperature 36.2 C
[2018-06-02] MEDS: RANITIDINE 150 MG TAB PO (21:00)
[2018-06-02] MEDS: ATORVASTATIN 40 MG TAB PO (21:44)
[2018-06-03 01:00] LABS: ADD MAN DIFF? NO
[2018-06-03] MEDS: ACETAMINOPHEN 650MG/20.3ML CUP PO ×3 (01:00→12:20)
[2018-06-03 01:03] LABS: ABNORMAL IP MESSAGE 1; BASOPHILS % 0.3 % (0.0-2.0); EOSINOPHILS # 0.1 10^3/ul (0.0-0.5); EOSINOPHILS % 1.6 % (0.0-7.0); HEMATOCRIT 24.9 % (42.0-52.0); HEMOGLOBIN 8.1 g/dl (14.0-18.0); LYMPHOCYTES # 0.5 10^3/ul (0.8-2.9); LYMPHOCYTES % 6.3 % (15.0-51.0); MEAN CORPUSCULAR HEMOGLOBIN 32.5 pg (29.0-33.0); MEAN CORPUSCULAR HGB CONC 32.5 g/dl (32.0-37.0); MEAN PLATELET VOLUME 12.6 fl (7.4-10.4); MONOCYTE # 0.6 10^3/ul (0.3-0.9); MONOCYTES % 7.4 % (0.0-11.0); NEUTROPHIL # 6.3 10^3/ul (1.6-7.5); NEUTROPHILS % 83.7 % (39.0-77.0); NUCLEATED RED BLOOD CELLS% 0.3 /100WBC (0.0-0.0); PLATELET COUNT 88 10^3/UL (140-415); POSITIVE DIFF @See below; RED BLOOD COUNT 2.49 10^6/ul (4.70-6.10); RED CELL DISTRIBUTION WIDTH 19.3 % (11.5-14.5)
[2018-06-03 01:03] LABS: WHITE BLOOD COUNT 7.5 10^3/ul (4.8-10.8)
[2018-06-03 01:22] LABS: INR 1.35; PROTIME 16.8 Sec (11.9-14.9); PT RATIO 1.3
[2018-06-03 01:23] LABS: PARTIAL THROMBOPLASTIN TIME 32.7 Sec (23.0-35.0)
[2018-06-03 01:26] LABS: AMYLASE 210 U/L (11-123)
[2018-06-03 01:26] LABS: ALANINE AMINOTRANSFERASE 17 IU/L (13-69); ALBUMIN 3.1 g/dl (3.3-4.9); ALBUMIN/GLOBULIN RATIO 0.44; ALKALINE PHOSPHATASE 125 IU/L (42-121); ANION GAP 20 (5-13); ASPARTATE AMINO TRANSFERASE 21 IU/L (15-46); BLOOD UREA NITROGEN 62 mg/dl (7-20); CALCIUM 10.2 mg/dl (8.4-10.2); CARBON DIOXIDE 21 mmol/L (21-31); CHLORIDE 98 mmol/L (97-110); GLUCOSE 103 mg/dl (70-220); LIPASE 1922 U/L (23-300); MAGNESIUM 2.2 mg/dl (1.7-2.5); PHOSPHORUS 10.2 mg/dl (2.5-4.9); POTASSIUM 4.7 mmol/L (3.5-5.1); SODIUM 139 mmol/L (135-144)
[2018-06-03 01:37] LABS: CREATININE 6.91 mg/dl (0.61-1.24)
[2018-06-03] MEDS: ACCU-CHEK XX ×7 (02:00→23:36)
[2018-06-03 02:19] LABS: AADO2 Arterial 126.1 mmHg (7.0-24.0); Allen Test ACCEPTAB; Arterial Base Excess -0.8 mmol/L (-3.0-3); Arterial Blood Gas Oxygen Sat 97.9 mmHG (95.0-100.0); Arterial COHb 0.1 % (0.0-3.0); Arterial Fraction of Oxyhgb 97.7 % (93.0-99.0); Arterial HCO3 23.7 mmol/L (22.0-26.0); Arterial MetHb 0.1 % (0.0-1.5); Arterial pCO2 38.1 mmhg (35-45); MODE VENT - AC; Site Right Radial; Temperature 36.9 C
[2018-06-03] MEDS: ACETAMINOPHEN 650 MG SUPP PR ×3 (02:23→13:00)
[2018-06-03] MEDS: LORAZEPAM 2 MG INJ IV ×5 (02:42→22:21)
[2018-06-03 06:12] LABS: ADD MAN DIFF? NO
[2018-06-03 06:14] LABS: ABNORMAL IP MESSAGE 1; BASOPHILS % 0.3 % (0.0-2.0); EOSINOPHILS # 0.1 10^3/ul (0.0-0.5); EOSINOPHILS % 1.2 % (0.0-7.0); HEMATOCRIT 25.6 % (42.0-52.0); HEMOGLOBIN 8.2 g/dl (14.0-18.0); LYMPHOCYTES # 0.5 10^3/ul (0.8-2.9); LYMPHOCYTES % 7.1 % (15.0-51.0); MEAN CORPUSCULAR HEMOGLOBIN 31.7 pg (29.0-33.0); MEAN CORPUSCULAR VOLUME 98.8 fl (82.0-101.0); MONOCYTE # 0.6 10^3/ul (0.3-0.9); MONOCYTES % 7.9 % (0.0-11.0); NEUTROPHIL # 6.2 10^3/ul (1.6-7.5); NEUTROPHILS % 82.8 % (39.0-77.0); PLATELET COUNT 95 10^3/UL (140-415); POSITIVE DIFF @See below; RED BLOOD COUNT 2.59 10^6/ul (4.70-6.10); RED CELL DISTRIBUTION WIDTH 19.4 % (11.5-14.5)
[2018-06-03 06:14] LABS: WHITE BLOOD COUNT 7.5 10^3/ul (4.8-10.8)
[2018-06-03] MEDS: ARTIFICIAL TEARS 15 ML OPH BOTH EYES ×4 (06:35→23:37)
[2018-06-03] MEDS: HYPROMELLOSE OPHTHALMIC LUBRICANT GEL (10 GM) BOTH EYES ×4 (06:35→23:37)
[2018-06-03 06:38] LABS: ANION GAP 21 (5-13); BLOOD UREA NITROGEN 64 mg/dl (7-20); CALCIUM 10.1 mg/dl (8.4-10.2); CARBON DIOXIDE 20 mmol/L (21-31); CHLORIDE 99 mmol/L (97-110); GLUCOSE 90 mg/dl (70-220); PHOSPHORUS 10.1 mg/dl (2.5-4.9); POTASSIUM 4.7 mmol/L (3.5-5.1); SODIUM 140 mmol/L (135-144)
[2018-06-03 06:49] LABS: CREATININE 7.16 mg/dl (0.61-1.24)
[2018-06-03 07:55] LABS: MAGNESIUM 2.3 mg/dl (1.7-2.5)
[2018-06-03] MEDS: FAMOTIDINE 20 MG INJ IV (09:04)
[2018-06-03] MEDS: AZTREONAM 0.5 GM in SOD CHLORIDE 0.9% 50 ML IV ×2 (09:05→20:13)
[2018-06-03] MEDS: ASPIRIN 81 MG TAB PO (09:07)
[2018-06-03] MEDS: NORepinephrine 8MG/250 ML (PMX 250 ML IV ×2 (11:09→22:59)
[2018-06-03] MEDS: PHENYTOIN 1,500 MG in SOD CHLORIDE 0.9% 150 ML IV (12:20)
[2018-06-03] MEDS: VANCOMYCIN 1 GM 250 ML IVPB (13:57)
[2018-06-03] MEDS: SEVELAMER CARBONATE 0.8 GM PKT NGT ×2 (13:57→20:13)
[2018-06-03] MEDS: BALSAM PERU/CASTOR OIL 60 GM TUBE TOP ×2 (13:58→20:13)
[2018-06-03 14:11] LABS: IMMUNOGLOBULIN D <1 mg/L (<179)
[2018-06-03 14:53] LABS: PHENYTOIN (DILANTIN) 15.2 ug/ml (10.0-20.0)
[2018-06-03] MEDS: ATORVASTATIN 40 MG TAB PO (20:12)
[2018-06-03] MEDS: PROPOFOL 100 ML IV (23:36)
[2018-06-04] MEDS: SEVELAMER CARBONATE 0.8 GM PKT NGT ×3 (03:30→20:53)
[2018-06-04] MEDS: ACCU-CHEK XX ×5 (03:33→20:53)
[2018-06-04 05:14] LABS: ADD MAN DIFF? NO
[2018-06-04 05:21] LABS: WHITE BLOOD COUNT 6.9 10^3/ul (4.8-10.8)
[2018-06-04 05:21] LABS: ABNORMAL IP MESSAGE 1; BASOPHILS % 0.3 % (0.0-2.0); EOSINOPHILS # 0.1 10^3/ul (0.0-0.5); EOSINOPHILS % 0.9 % (0.0-7.0); LYMPHOCYTES # 0.5 10^3/ul (0.8-2.9); LYMPHOCYTES % 7.4 % (15.0-51.0); MEAN CORPUSCULAR HEMOGLOBIN 31.7 pg (29.0-33.0); MEAN CORPUSCULAR VOLUME 99.2 fl (82.0-101.0); MEAN PLATELET VOLUME 12.8 fl (7.4-10.4); MONOCYTE # 0.6 10^3/ul (0.3-0.9); MONOCYTES % 8.9 % (0.0-11.0); NEUTROPHIL # 5.7 10^3/ul (1.6-7.5); NEUTROPHILS % 81.9 % (39.0-77.0); PLATELET COUNT 101 10^3/UL (140-415); POSITIVE DIFF @See below; RED BLOOD COUNT 2.52 10^6/ul (4.70-6.10); RED CELL DISTRIBUTION WIDTH 19.1 % (11.5-14.5)
[2018-06-04] MEDS: ARTIFICIAL TEARS 15 ML OPH BOTH EYES ×3 (05:57→18:00)
[2018-06-04] MEDS: HYPROMELLOSE OPHTHALMIC LUBRICANT GEL (10 GM) BOTH EYES ×3 (05:57→18:00)
[2018-06-04 06:03] LABS: ANION GAP 15 (5-13); BLOOD UREA NITROGEN 39 mg/dl (7-20); CALCIUM 8.6 mg/dl (8.4-10.2); CARBON DIOXIDE 29 mmol/L (21-31); CHLORIDE 98 mmol/L (97-110); CREATININE 5.12 mg/dl (0.61-1.24); GLUCOSE 86 mg/dl (70-220); POTASSIUM 4.1 mmol/L (3.5-5.1); SODIUM 142 mmol/L (135-144)
[2018-06-04] MEDS: AZTREONAM 0.5 GM in SOD CHLORIDE 0.9% 50 ML IV ×2 (09:34→20:53)
[2018-06-04] MEDS: BALSAM PERU/CASTOR OIL 60 GM TUBE TOP ×2 (09:34→20:54)
[2018-06-04] MEDS: FAMOTIDINE 20 MG INJ IV (09:34)
[2018-06-04] MEDS: ASPIRIN 81 MG TAB PO (09:34)
[2018-06-04] MEDS: PHENYTOIN 100 MG INJ IV ×3 (09:38→20:54)
[2018-06-04] MEDS ORDERED: SOD CHLORIDE 0.9% 1,000 ML IV (11:57)
[2018-06-04] MEDS ORDERED: SODIUM CHLORIDE 0.9% 1L BAG IV (12:00)
[2018-06-04] MEDS ORDERED: ALBUMIN HUMAN 25% 100 ML IV (12:00)
[2018-06-04] MEDS ORDERED: HEPARIN 1000 UNITS/ML 10 ML INJ CATHETER (12:00)
[2018-06-04] MEDS: PROPOFOL 100 ML IV (12:00)
[2018-06-04] MEDS: LORAZEPAM 2 MG INJ IV (15:12)
[2018-06-04] MEDS: ATORVASTATIN 40 MG TAB PO (20:54)
[2018-06-05] MEDS: PROPOFOL 100 ML IV
[2018-06-05] MEDS: HYPROMELLOSE OPHTHALMIC LUBRICANT GEL (10 GM) BOTH EYES ×5 (00:26→23:47)
[2018-06-05] MEDS: ARTIFICIAL TEARS 15 ML OPH BOTH EYES ×5 (00:26→23:47)
[2018-06-05] MEDS: ACCU-CHEK XX ×4 (04:00→12:30)
[2018-06-05] MEDS: SEVELAMER CARBONATE 0.8 GM PKT NGT ×3 (04:08→19:55)
[2018-06-05 04:59] LABS: AADO2 Arterial 133.4 mmHg (7.0-24.0); Arterial Blood Gas Oxygen Sat 97.6 mmHG (95.0-100.0); Arterial COHb 0.8 % (0.0-3.0); Arterial Fraction of Oxyhgb 96.8 % (93.0-99.0); Arterial HCO3 28.4 mmol/L (22.0-26.0); Arterial MetHb 0 % (0.0-1.5); Arterial pCO2 42.3 mmhg (35-45); MODE VENT - AC; Site Right Radial
[2018-06-05 05:30] LABS: ADD MAN DIFF? NO
[2018-06-05 05:41] LABS: WHITE BLOOD COUNT 5.8 10^3/ul (4.8-10.8)
[2018-06-05 05:41] LABS: ABNORMAL IP MESSAGE 1; BASOPHILS % 0.5 % (0.0-2.0); EOSINOPHILS # 0.1 10^3/ul (0.0-0.5); EOSINOPHILS % 1.4 % (0.0-7.0); HEMATOCRIT 23.2 % (42.0-52.0); HEMOGLOBIN 7.4 g/dl (14.0-18.0); LYMPHOCYTES # 0.6 10^3/ul (0.8-2.9); LYMPHOCYTES % 11.1 % (15.0-51.0); MEAN CORPUSCULAR HEMOGLOBIN 31.5 pg (29.0-33.0); MEAN CORPUSCULAR HGB CONC 31.9 g/dl (32.0-37.0); MEAN CORPUSCULAR VOLUME 98.7 fl (82.0-101.0); MEAN PLATELET VOLUME 12.1 fl (7.4-10.4); MONOCYTE # 0.6 10^3/ul (0.3-0.9); MONOCYTES % 11.1 % (0.0-11.0); NEUTROPHIL # 4.3 10^3/ul (1.6-7.5); NUCLEATED RED BLOOD CELLS% 0.3 /100WBC (0.0-0.0); PLATELET COUNT 97 10^3/UL (140-415); POSITIVE DIFF @See below; RED BLOOD COUNT 2.35 10^6/ul (4.70-6.10); RED CELL DISTRIBUTION WIDTH 19.5 % (11.5-14.5)
[2018-06-05 05:54] LABS: LACTIC ACID 1.3 mmol/L (0.5-2.0)
[2018-06-05 05:59] LABS: VANCOMYCIN,RANDOM 17.2 ug/ml
[2018-06-05] MEDS: PHENYTOIN 100 MG INJ IV ×3 (06:06→21:19)
[2018-06-05 06:12] LABS: ANION GAP 18 (5-13); BLOOD UREA NITROGEN 54 mg/dl (7-20); CALCIUM 8.8 mg/dl (8.4-10.2); CARBON DIOXIDE 26 mmol/L (21-31); CHLORIDE 97 mmol/L (97-110); GLUCOSE 84 mg/dl (70-220); POTASSIUM 4.7 mmol/L (3.5-5.1); SODIUM 141 mmol/L (135-144)
[2018-06-05 06:20] LABS: CREATININE 6.23 mg/dl (0.61-1.24)
[2018-06-05] MEDS: BALSAM PERU/CASTOR OIL 60 GM TUBE TOP ×2 (11:06→20:02)
[2018-06-05] MEDS: NORepinephrine 8MG/250 ML (PMX 250 ML IV (11:07)
[2018-06-05] MEDS: FAMOTIDINE 20 MG INJ IV (11:21)
[2018-06-05] MEDS: AZTREONAM 0.5 GM in SOD CHLORIDE 0.9% 50 ML IV ×2 (11:21→20:02)
[2018-06-05] MEDS: LORAZEPAM 2 MG INJ IV (11:21)
[2018-06-05] MEDS: ASPIRIN 81 MG TAB PO (11:21)
[2018-06-05 12:29] LABS: HEMATOCRIT 23.6 % (42.0-52.0); HEMOGLOBIN 7.6 g/dl (14.0-18.0)
[2018-06-05] MEDS: EPOETIN ALFA-EPBX (ESRD) 10,000 UNIT/ML VIAL SC (15:52)
[2018-06-05] MEDS: VANCOMYCIN 1 GM 250 ML IVPB (15:53)
[2018-06-05] MEDS: ATORVASTATIN 40 MG TAB PO (20:02)
[2018-06-06] MEDS: SEVELAMER CARBONATE 0.8 GM PKT NGT ×2 (04:09→11:35)
[2018-06-06 05:38] LABS: PHENYTOIN (DILANTIN) 7.2 ug/ml (10.0-20.0)
[2018-06-06 05:39] LABS: ANION GAP 18 (5-13); BLOOD UREA NITROGEN 44 mg/dl (7-20); CARBON DIOXIDE 27 mmol/L (21-31); CHLORIDE 95 mmol/L (97-110); CREATININE 5.64 mg/dl (0.61-1.24); GLUCOSE 87 mg/dl (70-220); MAGNESIUM 2.1 mg/dl (1.7-2.5); PHOSPHORUS 6.6 mg/dl (2.5-4.9); POTASSIUM 4.5 mmol/L (3.5-5.1); SODIUM 140 mmol/L (135-144)
[2018-06-06] MEDS: PHENYTOIN 100 MG INJ IV ×2 (05:42→14:10)
[2018-06-06] MEDS: HYPROMELLOSE OPHTHALMIC LUBRICANT GEL (10 GM) BOTH EYES ×3 (05:43→18:01)
[2018-06-06] MEDS: ARTIFICIAL TEARS 15 ML OPH BOTH EYES ×3 (05:43→18:01)
[2018-06-06] MEDS: LORAZEPAM 2 MG INJ IV ×3 (06:27→17:57)
[2018-06-06] MEDS: PHENYTOIN 300 MG in SOD CHLORIDE 0.9% 50 ML IV (07:19)
[2018-06-06] MEDS: ASPIRIN 81 MG TAB PO (09:11)
[2018-06-06] MEDS: AZTREONAM 0.5 GM in SOD CHLORIDE 0.9% 50 ML IV (09:11)
[2018-06-06] MEDS: FAMOTIDINE 20 MG INJ IV (09:11)
[2018-06-06] MEDS: BALSAM PERU/CASTOR OIL 60 GM TUBE TOP ×2 (09:12→19:52)
[2018-06-06] MEDS: NORepinephrine 8MG/250 ML (PMX 250 ML IV (09:44)
[2018-06-06 11:13] LABS: PHENYTOIN (DILANTIN) 7.3 ug/ml (10.0-20.0)
[2018-06-06 14:20] LABS: PHENYTOIN (DILANTIN) 5.7 ug/ml (10.0-20.0)
[2018-06-06 15:20] LABS: PHENYTOIN (DILANTIN) 6.9 ug/ml (10.0-20.0)
[2018-06-06] MEDS ORDERED: ARTIFICIAL TEARS 15 ML OPH BOTH EYES (16:00)
[2018-06-06] MEDS ORDERED: DIMETHICONE STICK TOP (16:00)
[2018-06-06] MEDS: PHENYTOIN 750 MG in SOD CHLORIDE 0.9% 100 ML IV (16:35)
[2018-06-06] MEDS: morphine (DRIP) 100 MG/100 ML 100 ML IV (16:43)
[2018-06-07] MEDS ORDERED: CEFAZOLIN 2 GM/50 ML (PMX) 50 ML IVPB (16:00)
== END 2018-06-06 21:35 | disposition expired | DRG 840 ==
LOC: ICU 06-01 02:16 → E/R 15:20 → ICU 05-30 13:09 → 2NE 05-30 17:28
PROC: 07DR3ZX Extraction of Iliac Bone Marrow, Percutaneous Approach, Diagnostic (ICD-10-PCS; principal; 2018-05-30)
PROC: 5A12012 Performance of Cardiac Output, Single, Manual (ICD-10-PCS; 2018-06-01)
PROC: 0BH17EZ Insertion of Endotracheal Airway into Trachea, Via Natural or Artificial Opening (ICD-10-PCS; 2018-06-01)
PROC: 5A1955Z Respiratory Ventilation, Greater than 96 Consecutive Hours (ICD-10-PCS; 2018-06-01)
DX: C90.00 Multiple myeloma not having achieved remission (principal); L89.323 Pressure ulcer of left buttock, stage 3; L89.313 Pressure ulcer of right buttock, stage 3; I21.4 Non-ST elevation (NSTEMI) myocardial infarction; N18.6 End stage renal disease; J96.00 Acute respiratory failure, unspecified whether with hypoxia or hypercapnia; I50.31 Acute diastolic (congestive) heart failure; J18.9 Pneumonia, unspecified organism; M84.550A Pathological fracture in neoplastic disease, pelvis, initial encounter for fracture; D61.818 Other pancytopenia; R18.8 Other ascites; G93.1 Anoxic brain damage, not elsewhere classified; I13.2 Hypertensive heart and chronic kidney disease with heart failure and with stage 5 chronic kidney disease, or end stage renal disease; I48.92 Unspecified atrial flutter; M48.56XD Collapsed vertebra, not elsewhere classified, lumbar region, subsequent encounter for fracture with routine healing; I46.9 Cardiac arrest, cause unspecified; E11.22 Type 2 diabetes mellitus with diabetic chronic kidney disease; Z99.2 Dependence on renal dialysis; Z86.73 Personal history of transient ischemic attack (TIA), and cerebral infarction without residual deficits; I48.0 Paroxysmal atrial fibrillation; E78.5 Hyperlipidemia, unspecified; K80.20 Calculus of gallbladder without cholecystitis without obstruction; E83.9 Disorder of mineral metabolism, unspecified; E11.21 Type 2 diabetes mellitus with diabetic nephropathy; R00.1 Bradycardia, unspecified; I48.2 Chronic atrial fibrillation; R56.9 Unspecified convulsions; E88.09 Other disorders of plasma-protein metabolism, not elsewhere classified; Z66 Do not resuscitate
CPT/HCPCS: 31500; 36415; 36600; 70450; 71045; 72146; 72148; 74018; 74176; 76705; 77012; 80048; 80053; 80185; 80202; 82150; 82550; 82553; 82784; 82785; 82803; 82962; 83036; 83605; 83615; 83690; 83735; 84100; 84155; 84165; 84484; 85014; 85018; 85025; 85378; 85384; 85610; 85730; 86320; 86704; 86709; 86803; 87040-91; 87070; 87081; 87340; 88305; 88311; 88313; 89220; 90935; 92950; 93005; 93306; 94002; 94003; 94770; 95819; 97161; 99285-25; J2430